=== PATIENT | female | born 1955 | race Caucasian/White ===

== ENCOUNTER → 2016-05-06 | Outpatient (CLI) | payer OTHER ==
[~2016-05-06] MED LIST: FLUO-1 PO; HYDR10FO PR; METO5TAB PO; PERC10TA27 PO; PROZ20CA11 PO; TRAZ100 PO; TRAZ100T4 PO; TRIL150T PO
[2016-05-06 09:17] LABS: AUTOMATED NEUTROPHIL # 6.9 TH/MM3 (1.8-7.7); BASOPHIL % 0.5 % (0.0-2.0); EOSINOPHIL # 0.2 TH/MM3 (0-0.4); EOSINOPHIL % 2.5 % (0.0-4.0); HEMATOCRIT 42.8 % (35.0-46.0); HEMO FLAGS DIFF FINAL; LYMPH % 18.2 % (9.0-44.0); LYMPHOCYTE # 1.7 TH/MM3 (1.0-4.8); MEAN CELL VOLUME 95.3 FL (80.0-100.0); MEAN CORPUSCULAR HEMOGLOBIN 31.6 PG (27.0-34.0); MEAN CORPUSCULAR HGB CONC 33.1 % (32.0-36.0); MONO % 6.1 % (0.0-8.0); NEUT % 72.7 % (16.0-70.0); PLATELET COUNT 258 TH/MM3 (150-450); RED BLOOD COUNT 4.49 MIL/MM3 (4.00-5.30); RED CELL DISTRIBUTION WIDTH 13.5 % (11.6-17.2); WHITE BLOOD COUNT 9.6 TH/MM3 (4.0-11.0)
--- NOTE | 2016-05-06 09:17 | RADRPT ---
EXAM DATE/TIME: 05/06/2016 08:51 [facility] COMPARISON: No previous studies available for comparison. INDICATIONS : Cough for 3 weeks. MEDICAL HISTORY : None. SURGICAL HISTORY : None. ENCOUNTER: Initial ACUITY: 3 weeks PAIN SCORE: 0/10 LOCATION: Bilateral upper chest FINDINGS: PA and lateral views of the chest demonstrate the lungs to be symmetrically aerated without evidence of mass, infiltrate or effusion. The cardiomediastinal contours are unremarkable. Osseous structure s are intact. CONCLUSION: 1. No active disease. Mild pectus deformity. Logan Lee MD on May 06, 2016 at 9:13 Board Certified Radiologist. This report was verified electronically.
[2016-05-06 09:21] LABS: BLOOD, URINE NEG (NEG); GLUCOSE,URINE NEG (NEG); HYALINE CAST, URINE 1 /lpf (RARE); KETONE, URINE TRACE mg/dL (NEG); MUCUS URINE MANY /lpf (OCC); NITRITE,URINE NEG (NEG); PH, URINE 5.5 (5.0-8.5); SQUAMOUS EPITHELIAL CELL URINE <1 /hpf (0-5); URINE COLOR YELLOW (YELLW/STRAW)
[2016-05-06 09:29] LABS: COMMENT (UR) CULT NOT INDICATED; CULTURE IF INDICATED CULT NOT INDICATED
[2016-05-06 09:38] LABS: ALKALINE PHOSPHATASE 78 U/L (45-117); ALT (GPT) 14 U/L (10-53); ANION GAP 10 MEQ/L (5-15); AST (GOT) 9 U/L (15-37); BICARBONATE 28.2 MEQ/L (21.0-32.0); BLOOD UREA NITROGEN 13 MG/DL (7-18); CHLORIDE 102 MEQ/L (98-107); GLOMERULAR FILTRATION RATE 69 ML/MIN (>89); GLUCOSE,FASTING 85 MG/DL (74-99); POTASSIUM 4.2 MEQ/L (3.5-5.1); SODIUM (NA) 140 MEQ/L (136-145); TOTAL BILIRUBIN ADULT 0.4 MG/DL (0.2-1.0)
--- NOTE | 2016-05-06 15:44 | EKG ---
Date Performed: 05/06/2016 Time Performed: 08:23:49 PTAGE: 60 years EKG: SINUS BRADYCARDIA BORDERLINE ECG INTERPRETATION BASED ON A DEFAULT AGE OF 40 YEARS NO PREVIOUS TRACING DOCTOR: Urszula Santana Interpretating Date/Time 05/06/2016 15:40:55
== END ==
LOC: CPRE 07:53
PROVIDERS: ATTEND Colon & Rectal Surgery
DX: Z01.810 Encounter for preprocedural cardiovascular examination (principal); Z01.811 Encounter for preprocedural respiratory examination; Z01.812 Encounter for preprocedural laboratory examination; K64.3 Fourth degree hemorrhoids; Z12.11 Encounter for screening for malignant neoplasm of colon; R94.31 Abnormal electrocardiogram [ECG] [EKG]
CPT/HCPCS: 36415; 71020; 80053; 81001; 85025; 93005

== ENCOUNTER 2016-05-13 08:28 | Observation (INO) | payer OTHER ==
[~2016-05-13] VITALS: Ht 154.9 cm; Wt 52.8 kg
[~2016-05-13 08:28] MED LIST changes: -FLUO-1 PO; -HYDR10FO PR; -METO5TAB PO; -PERC10TA27 PO; -TRAZ100 PO
--- NOTE | 2016-05-13 08:59 | PD.HP.UP ---
H&P Update Note The Pre-Admit History and Physical Examination regarding the above named patient was reviewed (including, but not limited to, vital signs, heart, lungs, co-morbid conditions), and upon re-examination it is noted that: the patient's condition has not significantly changed since the last examination. Gabe De La Torre MD May 13, 2016 08:58
[2016-05-13 09:11] VITALS: BP 108/67; PULSE 71; RESP 20; TEMP 97.9; O2SAT 94
[2016-05-13] MEDS ORDERED: INSULIN HUMAN REGULAR 1,000 UNITS/10 ML VIAL SQ PRN (09:15)
[2016-05-13] MEDS ORDERED: SODIUM CHLORID 0.9% 500 ML IV SCH (09:15)
[2016-05-13] MEDS ORDERED: LACTATED RINGER'S 1000 ML IV SCH (09:15)
[2016-05-13] MEDS ORDERED: METOPROLOL TARTRATE 25 MG TAB PO PRN (09:15)
[2016-05-13] MEDS ORDERED: LIDOCAINE 1%/EPINEPHrine 1:100,000 SOLN 30 ML VIAL ONE (10:54)
[2016-05-13] MEDS ORDERED: BUPIVACAINE/EPINEPHRINE 0.5% PF 30 ML VIAL ONE (10:55)
[2016-05-13] MEDS ORDERED: METOCLOPRAMIDE HCL 10 MG/2 ML VIAL ONE (10:59)
[2016-05-13] MEDS ORDERED: FAMOTIDINE 20 MG/2 ML VIAL ONE (10:59)
[2016-05-13] MEDS ORDERED: SILVER SULFADIAZINE/LIDOCAINE CREAM 60 GM JAR EXT ONE (11:45)
[2016-05-13] MEDS ORDERED: NEOSTIGMINE METHYLSULFATE 10 MG/10 ML VIAL IV PUSH ONE (12:00)
[2016-05-13] MEDS ORDERED: ONDANSETRON HCL 4 MG/2 ML VIAL IV PUSH ONE (12:00)
[2016-05-13] MEDS ORDERED: PROPOFOL 200 MG/20 ML AMP IV ONE (12:00)
[2016-05-13] MEDS ORDERED: PHENYLEPH/NS 1000 MCG/10 ML SYR IV ONE (12:00)
[2016-05-13] MEDS ORDERED: MORPHINE SULFATE 4 MG/ML INJ ONE (12:40)
[2016-05-13] MEDS ORDERED: MIDAZOLAM HCL 2 MG/2 ML VIAL ONE (12:40)
[2016-05-13] MEDS ORDERED: *morphine SULFATE 8 MG/ML PERIprocedure ONLY ONE ×2 (12:56→13:10)
[2016-05-13] MEDS ORDERED: KETOROLAC TROMETHAMINE 30 MG/ML (IVP) VIAL ONE (13:26)
[2016-05-13] MEDS ORDERED: MORPHINE SULFATE 4 MG/ML INJ IV PRN (13:30)
[2016-05-13] MEDS ORDERED: *hydrOXYzine 25 MG VIAL PERIprocedural Use ONLY IM ONE (13:45)
[2016-05-13] MEDS ORDERED: ONDANSETRON HCL 4 MG/2 ML VIAL IV PUSH PRN (14:00)
[2016-05-13] MEDS ORDERED: KETOROLAC TROMETHAMINE 30 MG/ML (IVP) VIAL IV PUSH ONE (15:00)
[2016-05-13] MEDS ORDERED: LACTATED RINGER'S 1000 ML INJ 1,000 ML IV ONE (17:15)
[2016-05-13 20:00] VITALS: BP 93/55; PULSE 86; RESP 17; TEMP 97.6; O2SAT 94
[2016-05-13] MEDS ORDERED: SODIUM CHLOR 0.9% 1000 ML INJ 1,000 ML IV SCH (22:30)
[2016-05-14] VITALS: BP 93/59; PULSE 81; RESP 17; TEMP 96.8; O2SAT 96
[2016-05-14] MEDS ORDERED: traZODone HCL 100 MG TAB PO ONE (00:30)
[2016-05-14 01:00] VITALS: BP 122/60; PULSE 74; O2SAT 95
[2016-05-14] MEDS: oxyCODONE/ACETAMINOPHEN 10 MG/325 MG TAB PO PRN ×3 (01:01→09:01)
[2016-05-14 04:00] VITALS: BP 95/54; PULSE 57; RESP 17; TEMP 96.8; O2SAT 96
[2016-05-14 05:10] LABS: AUTOMATED NEUTROPHIL # 9.5 TH/MM3 (1.8-7.7); BASOPHIL % 0.2 % (0.0-2.0); EOSINOPHIL # 0.1 TH/MM3 (0-0.4); EOSINOPHIL % 0.5 % (0.0-4.0); HEMATOCRIT 32.7 % (35.0-46.0); HEMO FLAGS DIFF FINAL; LYMPH % 18.7 % (9.0-44.0); LYMPHOCYTE # 2.4 TH/MM3 (1.0-4.8); MEAN CELL VOLUME 96.2 FL (80.0-100.0); MEAN CORPUSCULAR HEMOGLOBIN 32.1 PG (27.0-34.0); MEAN CORPUSCULAR HGB CONC 33.4 % (32.0-36.0); MONO % 8.2 % (0.0-8.0); NEUT % 72.4 % (16.0-70.0); PLATELET COUNT 192 TH/MM3 (150-450); RED CELL DISTRIBUTION WIDTH 13.3 % (11.6-17.2); WHITE BLOOD COUNT 13.1 TH/MM3 (4.0-11.0)
[2016-05-14 08:00] VITALS: BP 84/48; PULSE 78; RESP 17; TEMP 97; O2SAT 94
[2016-05-14] MEDS ORDERED: PERC10TA27 PO (09:05)
[2016-05-14 12:06] VITALS: O2SAT 94
[2016-05-14] MEDS ORDERED: traZODone HCL 100 MG TAB PO SCH (21:00)
--- NOTE | 2016-05-26 07:30 | MP ---
cc: ANTWON GARCIA M.D. DATE OF SURGERY: 05/13/2016 PREOPERATIVE DIAGNOSIS Symptomatic grade IV hemorrhoids. PROCEDURE 1. Colonoscopy to cecum. 2. Exam under anesthesia with anorectoplasty. POSTOPERATIVE DIAGNOSIS 1. Normal cecum and ileocecal valve. 2. Diverticulosis rectosigmoid and left colon. 3. Grade III/IV internal and external hemorrhoids. SURGEON Dr. Garcia DETAILS OF PROCEDURE The patient was placed in the supine position. After adequate general anesthesia she was turned in the left lateral position. Rectal exam confirmed the emptiness of the rectal vault. The Olympus colonoscope was then introduced into the rectum and advanced easily under direct vision through the proximal colon until the cecum was identified. The ileocecal valve was normal. There were no vascular abnormalities noted in the cecum. The colonoscope was then gradually withdrawn visualizing the mucosal surface throughout the distal colon. Except for some diverticulosis in the rectosigmoid there were no other mucosal polyps or other sites of inflammation. Next, the patient was repositioned to the prone jackknife position and supported appropriately. The buttocks were taped apart, prepped with Betadine solution and draped in the usual sterile fashion. Initially local anesthesia was obtained by injection of 1% Xylocaine/0.5% Marcaine with epinephrine. The anal canal was gently dilated and a half-casey retractor inserted. Examination revealed rather large hemorrhoids in the left lateral and right posterior positions. The right anterior cushion was a little bit smaller although a moderate external hemorrhoid was present. First an elliptical incision was made over the large hemorrhoidal mass in the left lateral quadrant excising it off the internal and external sphincter. The pedicle was then narrowed and divided using electrocautery. The mucosal defect was then closed using a running chromic catgut suture for the mucosa and the anoderm. Several [id number] sutures of chromic catgut were also placed for hemostasis. Similar dissection was then performed in the right posterior position and smaller excision in the right anterior position, closing the posterior defect but leaving the anterior defect opened with good hemostasis. The lumen size was more than adequate after the procedure. Small Surgicel dressing was placed in the anal canal and a large Fluff dressing placed externally. The patient tolerated the procedure quite well and was brought to the recovery room in stable condition. Sponge and needle counts were correct at the end of the procedure. MD YOSELYN Celis /11:06 PM /7:19 AM MTDTrang
== END 2016-05-14 12:10 | disposition home or self-care (01) ==
LOC: HSDC 08:28 → N07B 12:30
PROVIDERS: ADMIT Colon & Rectal Surgery; ATTEND Colon & Rectal Surgery
DX: Z12.11 Encounter for screening for malignant neoplasm of colon (principal); K64.3 Fourth degree hemorrhoids; K64.4 Residual hemorrhoidal skin tags; K57.90 Diverticulosis of intestine, part unspecified, without perforation or abscess without bleeding
CPT/HCPCS: 00902; 45378; 46260; 85025; 88304; G0378; J1885; J2250; J2270; J2370; J2405; J2710; J2765; J3010; J3410; J7030; J7120

== ENCOUNTER 2016-05-21 09:22 | Inpatient (IN) | payer OTHER ==
[~2016-05-21] VITALS: Ht 157.5 cm; Wt 50.0 kg
[~2016-05-21 09:22] MED LIST changes: +PERC10TA27 PO
[2016-05-21 09:44] VITALS: BP 139/98; PULSE 75; RESP 20; TEMP 97.5; O2SAT 99
--- NOTE | 2016-05-21 09:49 | PD ---
HPI Chief Complaint: GI Complaint Time Seen by Provider: 09:45 Travel History International Travel<30 days: No Contact w/Intl Traveler<30days: No Traveled to known affect area: No History of Present Illness HPI 60-year-old female came to the emergency room with history of vomiting and abdominal pain. She said it started last night and she has vomited multiple times since then. She points her pain to the epigastric area. Patient finally called EMS who brought her in. She did have a bowel movement once or twice but no overt diarrhea. Patient had hemorrhoidectomy one week ago. No history of bleeding patient said. No history of fever or chills. She looks in significant distress and anxious. Patient says that they gave her something for nausea in the ambulance but that has not made her feel better. Vital signs are otherwise within acceptable limits. Normal tone sick contacts. Patient was taking Percocet up until 2 days ago for her pain. PFSH Past Medical History Narrative Medical List of her past medical history as reviewed from the nursing note. Bipolar Disorder: Yes Cancer: No Cardiovascular Problems: No Diabetes: No Endocrine: No Gastrointestinal Disorders: Yes (HEMORRHOIDS) Hepatitis: No Hiatal Hernia: No Immune Disorder: No Musculoskeletal: No Neurologic: No Psychiatric: No Reproductive: No Respiratory: No Thyroid Disease: No Tetanus Vaccination: < 5 Years ?: Not Menopausal: Yes Past Surgical History AICD: No Body Medical Devices: BREAST AUGMENTATION Joint Replacement: No Pacemaker: No Other Surgery: Yes (HEMMOHOIDECTOMY ON WED ) Social History Alcohol Use: No Tobacco Use: Yes Substance Use: No Allergies-Medications (Allergen,Severity, Reaction): Coded Allergies: No Known Allergies (Unverified , 05/06/16) Comments No known drug allergies. Reported Meds & Prescriptions Reported Meds & Active Scripts Active Reported Trileptal (Oxcarbazepine) 150 Mg Tab 450 Mg PO DAILY Trazodone (Trazodone HCl) 100 Mg Tab 200 Mg PO HS Prozac (Fluoxetine HCl) 20 Mg Cap 60 Mg PO DAILY Narrative Medication List of her home medications reviewed from the nursing note. Review of Systems Except as stated in HPI: all other systems reviewed are Neg Physical Exam Narrative GENERAL: Awake, alert, anxious, moderate to significant distress SKIN: Warm and dry. Pale HEAD: Atraumatic. Normocephalic. EYES: Pupils equal and round. No scleral icterus. No injection or drainage. ENT: No nasal bleeding or discharge. Mucous membranes pink and moist. Dry mucous membrane NECK: Trachea midline. No JVD. CARDIOVASCULAR: Regular rate and rhythm. No murmur appreciated. RESPIRATORY: No accessory muscle use. Clear to auscultation. Breath sounds equal bilaterally. GASTROINTESTINAL: Tender over her epigastric region. Hepatic and splenic margins not palpable. MUSCULOSKELETAL: No obvious deformities. No clubbing. No cyanosis. No edema. NEUROLOGICAL: Awake and alert. No obvious cranial nerve deficits. Motor grossly within normal limits. Normal speech. PSYCHIATRIC: Appropriate mood and affect; insight and judgment normal. Data Data Last Documented VS Vital Signs Date Time Temp Pulse Resp B/P Pulse Ox O2 Delivery O2 Flow Rate FiO2 05/21/16 10:25 99 05/21/16 09:44 97.5 75 20 139/98 Orders Complete Blood Count With Diff (05/21/16 09:52) Comprehensive Metabolic Panel (05/21/16 09:52) Lipase (05/21/16 09:52) Act Partial Throm Time (Ptt) (05/21/16 09:52) Ct Abd/Pel W/O Iv Contrast (05/21/16 09:52) Iv Access Insert/Monitor (05/21/16 09:52) Ecg Monitoring (05/21/16 09:52) Oximetry (05/21/16 09:52) Morphine Inj (Morphine Inj) (05/21/16 10:00) Ondansetron Inj (Zofran Inj) (05/21/16 10:00) Pantoprazole Inj (Protonix Inj) (05/21/16 10:00) Sodium Chlor 0.9% 1000 Ml Inj (Ns 1000 M (05/21/16 09:52) Sodium Chloride 0.9% Flush (Ns Flush) (05/21/16 10:00) Electrocardiogram (05/21/16 ) Admit Order (Ed Use Only) (05/21/16 11:41) Place In Observation (05/21/16 ) Vital Signs (Adult) Q4H (05/21/16 11:42) Activity Bed Rest With Brp (05/21/16 11:42) Diet Clear Liquid (05/21/16 Lunch) Sodium Chlor 0.9% 1000 Ml Inj (Ns 1000 M (05/21/16 12:00) Sodium Chloride 0.9% Flush (Ns Flush) (05/21/16 11:45) Sodium Chloride 0.9% Flush (Ns Flush) (05/21/16 21:00) Acetaminophen (Tylenol) (05/21/16 11:45) Ondansetron Inj (Zofran Inj) (05/21/16 11:45) Basic Metabolic Panel (Bmp) (05/22/16 06:00) Complete Blood Count With Diff (05/22/16 06:00) Scd Bilateral/Knee High ARIAN.BID (05/21/16 11:42) Naloxone Inj (Narcan Inj) (05/21/16 11:45) Labs Laboratory Tests Test 05/21/16 10:00 White Blood Count 13.0 TH/MM3 Red Blood Count 4.24 MIL/MM3 Hemoglobin 13.6 GM/DL Hematocrit 39.9 % Mean Corpuscular Volume 94.1 FL Mean Corpuscular Hemoglobin 32.0 PG Mean Corpuscular Hemoglobin 34.0 % Concent Red Cell Distribution Width 13.4 % Platelet Count 363 TH/MM3 Mean Platelet Volume 8.7 FL Neutrophils (%) (Auto) 89.1 % Lymphocytes (%) (Auto) 5.7 % Monocytes (%) (Auto) 4.8 % Eosinophils (%) (Auto) 0.1 % Basophils (%) (Auto) 0.3 % Neutrophils # (Auto) 11.6 TH/MM3 Lymphocytes # (Auto) 0.7 TH/MM3 Monocytes # (Auto) 0.6 TH/MM3 Eosinophils # (Auto) 0.0 TH/MM3 Basophils # (Auto) 0.0 TH/MM3 CBC Comment DIFF FINAL Differential Comment Activated Partial 24.5 SEC Thromboplast Time Sodium Level 137 MEQ/L Potassium Level 3.5 MEQ/L Chloride Level 103 MEQ/L Carbon Dioxide Level 22.9 MEQ/L Anion Gap 11 MEQ/L Blood Urea Nitrogen 8 MG/DL Creatinine 0.68 MG/DL Estimat Glomerular Filtration 88 ML/MIN Rate Random Glucose 143 MG/DL Calcium Level 8.7 MG/DL Total Bilirubin 0.4 MG/DL Aspartate Amino Transf 15 U/L (AST/SGOT) Alanine Aminotransferase 17 U/L (ALT/SGPT) Alkaline Phosphatase 75 U/L Total Protein 7.4 GM/DL Albumin 3.6 GM/DL Lipase 218 U/L MDM Medical Decision Making Medical Screen Exam Complete: Yes Emergency Medical Condition: Yes Medical Record Reviewed: Yes Differential Diagnosis Small bowel obstruction, acute pancreatitis, acute cholecystitis Narrative Course 10:06 AM awaiting for the blood test results and the CAT scan to be done and resulted. I'm giving her IV fluid, medicating her for pain and nausea. I will reassess her in a bit. 11:18 AM test results of back and within acceptable limits. CT scan does not show any abnormalities that would explain the vomiting episode. In my opinion should probably developed gastritis from the medications after the surgery she was taking for pain. I reassessed her and she says she still dry heaving and does not feel good. I will admit her for observation for intractable vomiting and nausea at this point. Awaiting for the hospitalist to call back. Procedures EKG Prior to Arrival: No Diagnosis Primary Impression: Acute gastritis Qualified Code: K29.00 - Acute gastritis without hemorrhage, unspecified gastritis type Additional Impressions: Intractable nausea and vomiting Qualified Code: R11.2 - Intractable vomiting with nausea, unspecified vomiting type Status post hemorrhoidectomy Admitting Information Admitting Physician Requests: Observation Scripts Metoclopramide 5 Mg Tab5 Mg PO TIDAC PRN (30) #30 TAB Ref 0 Prov:Sisi Cruz 05/23/16 Abida Simmons MD May 21, 2016 09:49
[2016-05-21] MEDS ORDERED: SODIUM CHLOR 0.9% 1000 ML INJ 1,000 ML IV SCH (09:52)
[2016-05-21] MEDS ORDERED: SODIUM CHLORIDE 0.9% FLUSH 5 ML FLUSH IVF PRN (10:00)
[2016-05-21] MEDS ORDERED: PANTOPRAZOLE SODIUM 40 MG VIAL IVP ONE (10:00)
[2016-05-21] MEDS ORDERED: ONDANSETRON HCL 4 MG/2 ML VIAL IVP ONE (10:00)
[2016-05-21] MEDS ORDERED: MORPHINE SULFATE 4 MG/ML INJ IV PUSH ONE (10:00)
[2016-05-21 10:25] VITALS: O2SAT 99
[2016-05-21 10:36] LABS: AUTOMATED NEUTROPHIL # 11.6 TH/MM3 (1.8-7.7); BASOPHIL % 0.3 % (0.0-2.0); EOSINOPHIL % 0.1 % (0.0-4.0); HEMATOCRIT 39.9 % (35.0-46.0); HEMO FLAGS DIFF FINAL; LYMPH % 5.7 % (9.0-44.0); LYMPHOCYTE # 0.7 TH/MM3 (1.0-4.8); MEAN CELL VOLUME 94.1 FL (80.0-100.0); MONO % 4.8 % (0.0-8.0); NEUT % 89.1 % (16.0-70.0); PLATELET COUNT 363 TH/MM3 (150-450); RED BLOOD COUNT 4.24 MIL/MM3 (4.00-5.30); RED CELL DISTRIBUTION WIDTH 13.4 % (11.6-17.2)
[2016-05-21 10:44] LABS: APTT (PATIENT) 24.5 SEC (24.3-30.1)
[2016-05-21 10:58] LABS: ALT (GPT) 17 U/L (10-53); ANION GAP 11 MEQ/L (5-15); BICARBONATE 22.9 MEQ/L (21.0-32.0); BLOOD UREA NITROGEN 8 MG/DL (7-18); CHLORIDE 103 MEQ/L (98-107); GLOMERULAR FILTRATION RATE 88 ML/MIN (>89); POTASSIUM 3.5 MEQ/L (3.5-5.1); SODIUM (NA) 137 MEQ/L (136-145)
--- NOTE | 2016-05-21 11:00 | RADRPT ---
EXAM DATE/TIME: 05/21/2016 10:19 [facility] COMPARISON: No previous studies available for comparison. INDICATIONS : Lower abdominal pain with vomiting since last night. Hemorrhiodectomy yesterday. ORAL CONTRAST: No oral contrast ingested. RADIATION DOSE: 9.96 CTDIvol (mGy) MEDICAL HISTORY : None SURGICAL HISTORY : Hemorrhoidectomy. ENCOUNTER: Initial ACUITY: 1 day PAIN SCALE: 3/10 LOCATION: lower quadrant abdomen TECHNIQUE: Volumetric scanning of the abdomen and pelvis was performed. Using automated exposure control and ad justment of the mA and/or kV according to patient size, radiation dose was kept as low as reasonably achievable to obtain optimal diagnostic quality images. FINDINGS: LOWER LUNGS: Linear atelectasis versus scarring within the right base. LIVER: Homogeneous density without lesion. There is no dilation of the biliary tree. No calcified gallston es. SPLEEN: Normal size without lesion. PANCREAS: Within normal limits. KIDNEYS: Normal in size and shape. There is no mass or hydronephrosis. 2 tiny nonobstructing stones involve t he left kidney. Each measures approximately 1 mm. ADRENAL GLANDS: 1.9 cm low-density nodule involving the left adrenal gland. Hounsfield units are 9. The right adrenal gland is unremarkable. VASCULAR: There is no aortic aneurysm. BOWEL/MESENTERY: The stomach, small bowel, and colon demonstrate no acute abnormality. There is no free intraperitone al air or fluid. ABDOMINAL WALL: Within normal limits. RETROPERITONEUM: There is no lymphadenopathy. BLADDER: No wall thickening or mass. REPRODUCTIVE: Within normal limits. INGUINAL: There is no lymphadenopathy or hernia. MUSCULOSKELETAL: Within normal limits for patient age. CONCLUSION: 1. No acute abnormality. 2. 2 tiny nonobstructing left renal stones. 3. 1.9 cm left adrenal gland nodule poorly characterized on this unenhanced study. Maxx Mayers Jr., MD on May 21, 2016 at 10:51 Board Certified Radiologist. This report was verified electronically.
[2016-05-21 11:01] LABS: ALKALINE PHOSPHATASE 75 U/L (45-117); AST (GOT) 15 U/L (15-37); TOTAL BILIRUBIN ADULT 0.4 MG/DL (0.2-1.0)
[2016-05-21] MEDS ORDERED: MORPHINE SULFATE 4 MG/ML INJ IV PUSH PRN (11:45)
[2016-05-21] MEDS ORDERED: NALOXONE HCL 0.4 MG/ML AMP IV PRN (11:45)
[2016-05-21] MEDS ORDERED: SODIUM CHLORIDE 0.9% FLUSH 5 ML FLUSH FLUSH PRN (11:45)
[2016-05-21] MEDS ORDERED: METOCLOPRAMIDE HCL 10 MG/2 ML VIAL IV PUSH ONE (12:15)
[2016-05-21 12:28] VITALS: BP 173/81; PULSE 78; RESP 14; O2SAT 98
[2016-05-21] MEDS: SODIUM CHLOR 0.9% 1000 ML INJ 1,000 ML IV SCH ×2 (12:28→20:47)
[2016-05-21] MEDS ORDERED: PANTOPRAZOLE SODIUM 40 MG VIAL IV PUSH SCH (14:00)
--- NOTE | 2016-05-21 15:20 | MH ---
cc: TOMMYMARÍA DATE OF ADMISSION: 05/21/2016 DATE OF 1955 CHIEF COMPLAINT Irretractable nausea and vomiting. TRAVEL LESS THAN 30 DAYS: No HISTORY OF PRESENT ILLNESS This is a pleasant 60-year-old white female who was in the hospital approximately a week ago for hemorrhoidectomy. The patient had no acute issues postop and was sent home to recuperate. The patient was also sent home with pain medicine, Percocet. The prescription said two tablets every 4 hours as needed for pain and the patient was taking them as prescribed. She states sometimes she would wait a little longer but for the most part she was taking two Percocet at a time. The patient has had nausea pretty much constant since she got home but approximately 2 days ago she was not able to eat or keep anything on her stomach. She has had irretractable vomiting, she states approximately a hundred times. She states that she vomited approximately 1 hour ago which was liquid bowel consistency. She is not bringing up very much but she is dry heaving to the point that she is sore in her chest and abdomen. The patient states that she does have a history of reflux and gastroesophageal reflux disease but denies any chest pain and no shortness of breath. The patient denies any fever or chills over the past week. She did have a bowel movement this morning which was a soft consistency. She denies any bleeding. No headache and no history of any nausea and vomiting or abdominal pain like she has had this go around. The patient did note a 10 pound weight gain after leaving the hospital but states that she has urinated significant amounts and has lost that weight back down to her normal weight. PAST MEDICAL HISTORY 1. Gastroesophageal reflux disease. 2. Bipolar disorder. 3. Hemorrhoids. PAST SURGICAL HISTORY 1. Breast augmentation. 2. Hemorrhoidectomy approximately 1 week ago. ALLERGIES None known. MEDICATIONS Active medications: 1. Trazodone 200 mg p.o. at bedtime. 2. Prozac 20 mg daily. 3. Trileptal 450 mg p.o. daily. 4. Currently Percocet for pain management postop only. SOCIAL HISTORY The patient is but currently lives with her boyfriend in a home. Denies any alcohol use. She was a chronic tobacco user but states she quit approximately 2 years ago. No illicit drug use. FAMILY HISTORY Cancer, although her mother is still living and here at the hospital. She does have other family members at her bedside. REVIEW OF SYSTEMS A 12-point review was done. Positives noted are generalized weakness, nausea, vomiting. Other systems negative or unremarkable. PHYSICAL EXAMINATION VITAL SIGNS: Temperature is 97.5, pulse 75, respirations 20 and blood pressure is 139/98 and 173/81, O2 sat 98 on room air. GENERAL: Slim, well-nourished white female, looks to be her stated age, resting in the bed, mild anxiety noted, talkative. SKIN: Skin is warm and dry, slightly pale. HEENT: Atraumatic, normocephalic. PERRLA at 2. No scleral icterus. No drainage. No nasal drainage. Mucous membranes are slightly pale but moist. NECK: Neck is supple. No JVD. CARDIOVASCULAR: Regular rate and rhythm. No murmurs, rubs or gallops appreciated. RESPIRATORY: Essentially clear anteriorly and posteriorly. No accessory muscle use. No wheezes, rales or rhonchi. GI: Abdomen is flat, soft, nontender, nondistended. Active bowel sounds in all four quads. MUSCULOSKELETAL: She moves all extremities with purpose, no edema. No clubbing, no cyanosis. Pulses are intact. NEUROLOGIC: She is alert, awake, answers questions appropriately, a good historian. Speech is clear. Hand herpetology teacher are equal. PSYCHIATRIC: Appropriate mood and affect, mild anxiety. DIAGNOSTIC DATA WBC count 13, RBC 4.24, hemoglobin 13.6, hematocrit 39.9, platelet count 363, neutrophil absolute 89.1, lymphocyte 5.7. APTT 24.5. Chemistry sodium 137, potassium 3.5, chloride 103, carbon dioxide 22.9, amnion gap 11, BUN 8, creatinine 0.68, GFR 88, random glucose 143, calcium 8.7, lipase 218. All other chemistries are normal. IMAGING STUDIES Abdomen, pelvis CT showed no acute abnormality, tiny nonobstructing left renal stone, 1.9 cm left adrenal gland nodule poorly characterized in his unenhanced study. ASSESSMENT/PLAN Acute gastritis without hemorrhage, irretractable nausea and vomiting, possibly secondary to pain meds. The patient is status post hemorrhoidectomy x1 week. Small nonobstructing left renal stone seen on exam. Bipolar disorder. Our plan is to admit for observation. We will monitor her vital signs q. 4, ECG monitoring. We will draw labs in the morning and as warranted. Give her gentle hydration with IV fluids. I started her on IV Protonix. Her medications have been reconciled. She can have clear liquids and will treat her nausea with IV meds as warranted. Family is in the room, questions have been answered. The patient needs hydration and we will continue to evaluate any further symptoms or needs. This non-obstructing renal stone has been visualized on exam; doubt that this is any particular cause to her nausea and vomiting. Currently we are not going to use any p.o. pain meds or Percocet. She will be on IV morphine as warranted. The patient is full code, full aggressive care per her request and we will follow. Dictated by: ROMIE Romero María Myrick MD JP/SEBASTIAN /1:54 PM /3:19 PM Pt was seen and examined in ER as above on day of admission face to face time spent with pt chart was reviewed in detail including meds labs and notes and rad data plan of care was jayne godoy pt jayne corn chip maker jayne ER physician SIMI
[2016-05-21 16:56] VITALS: BP 114/59; PULSE 65; RESP 18; O2SAT 95
[2016-05-21 19:27] VITALS: BP 101/57; PULSE 60; RESP 16; O2SAT 98
[2016-05-21 20:31] VITALS: BP 125/69; PULSE 59; RESP 19; TEMP 98.8; O2SAT 93
[2016-05-21] MEDS: traZODone HCL 100 MG TAB PO SCH (20:46)
[2016-05-21] MEDS: SODIUM CHLORIDE 0.9% FLUSH 5 ML FLUSH FLUSH SCH (20:47)
[2016-05-21] MEDS: ACETAMINOPHEN 325 MG TAB PO PRN (20:56)
[2016-05-22 00:47] VITALS: BP_SYST 58; PULSE 51; RESP 18; TEMP 98; O2SAT 96
[2016-05-22] MEDS: ACETAMINOPHEN 325 MG TAB PO PRN ×2 (03:27→22:20)
[2016-05-22] MEDS: ONDANSETRON HCL 4 MG/2 ML VIAL IVP PRN ×2 (03:37→10:01)
[2016-05-22 07:10] LABS: AUTOMATED NEUTROPHIL # 9.6 TH/MM3 (1.8-7.7); BASOPHIL % 0.4 % (0.0-2.0); EOSINOPHIL % 0.1 % (0.0-4.0); HEMATOCRIT 38.8 % (35.0-46.0); HEMO FLAGS DIFF FINAL; LYMPH % 10.5 % (9.0-44.0); LYMPHOCYTE # 1.2 TH/MM3 (1.0-4.8); MEAN CELL VOLUME 95.2 FL (80.0-100.0); MEAN CORPUSCULAR HEMOGLOBIN 31.6 PG (27.0-34.0); MEAN CORPUSCULAR HGB CONC 33.2 % (32.0-36.0); MONO % 5.9 % (0.0-8.0); NEUT % 83.1 % (16.0-70.0); PLATELET COUNT 341 TH/MM3 (150-450); RED BLOOD COUNT 4.07 MIL/MM3 (4.00-5.30); RED CELL DISTRIBUTION WIDTH 13.9 % (11.6-17.2); WHITE BLOOD COUNT 11.5 TH/MM3 (4.0-11.0)
[2016-05-22 07:12] VITALS: BP 159/81; PULSE 63; RESP 17; TEMP 97.9; O2SAT 94
[2016-05-22] MEDS ORDERED: LORazepam 2 MG/ML VIAL IV PUSH ONE (07:15)
[2016-05-22 07:32] LABS: BICARBONATE 20.9 MEQ/L (21.0-32.0); POTASSIUM 3.4 MEQ/L (3.5-5.1)
[2016-05-22] MEDS ORDERED: POTASSIUM CHLOR 20 MEQ PREMIX 100 ML IV ONE (08:00)
--- NOTE | 2016-05-22 08:01 | HHI.PR ---
Subjective Subjective Remarks nausea and vomiting overnight, at least 10 x , clear emesis epigastric discomfort states she's lost weight 20 lbs in 6 months unintentional no fever no cp no sob Review of Systems Constitutional Constitutional Remarks 12 point ROS completed negative except as noted above Vitals/Results Intake & Output 05/21/16 05/21/16 05/22/16 15:00 23:00 07:00 Intake Total 240 ml Balance 240 ml Intake Oral 240 ml Vital Signs Vital Signs Date Time Temp Pulse Resp B/P Pulse Ox O2 Delivery O2 Flow Rate FiO2 05/22/16 07:12 97.9 63 17 159/81 94 05/22/16 00:47 98.0 51 18 58/ 96 05/21/16 20:31 98.8 59 19 125/69 93 05/21/16 19:27 60 16 101/57 98 Room Air 05/21/16 16:56 65 18 114/59 95 Room Air 05/21/16 12:28 78 14 173/81 98 05/21/16 10:25 99 05/21/16 09:44 97.5 75 20 139/98 99 CBC/BMP: 05/22/16 0624 05/22/16 0624 Lab Results Laboratory Tests Test 05/21/16 05/22/16 10:00 06:24 White Blood Count 13.0 TH/MM3 11.5 TH/MM3 Red Blood Count 4.24 MIL/MM3 4.07 MIL/MM3 Hemoglobin 13.6 GM/DL 12.9 GM/DL Hematocrit 39.9 % 38.8 % Mean Corpuscular Volume 94.1 FL 95.2 FL Mean Corpuscular Hemoglobin 32.0 PG 31.6 PG Mean Corpuscular Hemoglobin 34.0 % 33.2 % Concent Red Cell Distribution Width 13.4 % 13.9 % Platelet Count 363 TH/MM3 341 TH/MM3 Mean Platelet Volume 8.7 FL 8.0 FL Neutrophils (%) (Auto) 89.1 % 83.1 % Lymphocytes (%) (Auto) 5.7 % 10.5 % Monocytes (%) (Auto) 4.8 % 5.9 % Eosinophils (%) (Auto) 0.1 % 0.1 % Basophils (%) (Auto) 0.3 % 0.4 % Neutrophils # (Auto) 11.6 TH/MM3 9.6 TH/MM3 Lymphocytes # (Auto) 0.7 TH/MM3 1.2 TH/MM3 Monocytes # (Auto) 0.6 TH/MM3 0.7 TH/MM3 Eosinophils # (Auto) 0.0 TH/MM3 0.0 TH/MM3 Basophils # (Auto) 0.0 TH/MM3 0.0 TH/MM3 CBC Comment DIFF FINAL DIFF FINAL Differential Comment Activated Partial 24.5 SEC Thromboplast Time Sodium Level 137 MEQ/L 139 MEQ/L Potassium Level 3.5 MEQ/L 3.4 MEQ/L Chloride Level 103 MEQ/L 107 MEQ/L Carbon Dioxide Level 22.9 MEQ/L 20.9 MEQ/L Anion Gap 11 MEQ/L 11 MEQ/L Blood Urea Nitrogen 8 MG/DL 8 MG/DL Creatinine 0.68 MG/DL 0.61 MG/DL Estimat Glomerular Filtration 88 ML/MIN 100 ML/MIN Rate Random Glucose 143 MG/DL 103 MG/DL Calcium Level 8.7 MG/DL 8.4 MG/DL Total Bilirubin 0.4 MG/DL Aspartate Amino Transf 15 U/L (AST/SGOT) Alanine Aminotransferase 17 U/L (ALT/SGPT) Alkaline Phosphatase 75 U/L Total Protein 7.4 GM/DL Albumin 3.6 GM/DL Lipase 218 U/L Physical Exam General General Appearance: Well Developed, No Acute Distress, Comfortable Eyes Eye Exam: Pupils Equal, Pupils Reactive Ears & Nose Ears & Nose Exam: Nasal Mucosa [place] Throat Throat Exam: Oral Mucosa [place] & Moist Neck Neck Exam: Neck Supple, Trachea Midline Pulmonary Resp Exam: Clear Bilaterally Cardiology CV Exam: Regular, Normal Sinus Rhythm, Good Perfusion Gastrointestinal/Abdomen GI Exam: Soft, Bowel Sounds Present, Non-Distended GI Remarks epigastric tenderness Musculoskeletal MS Exam: Joints Intact Integumentary Skin Exam: Warm, Dry Extremeties Extremities Exam: No Edema, Pedal Pulses Palpable Neurologic Neuro Exam: Alert, Awake, Oriented, Speech Clear, Moving All Extremities, No Focal Deficits Psychiatric Psych Exam: Appropriate Responses VTE Prophylaxis VTE Prophylaxis Device: SCDs PUD Prophylasis PUD Prophylaxis: Protonix Assessment/Plan Problem List: (1) Acute gastritis (2) Intractable nausea and vomiting (3) Status post hemorrhoidectomy (4) Unintentional weight loss (5) GERD (gastroesophageal reflux disease) (6) Bipolar disorder Assessment/Plan continue IVF Antiemetics PRN Replace electrolytes IV PPI Endorses wt loss x 6 months unintentional continues with N/V, consult GI for evaluation, d/w Car GRUBBS Keep NPO except meds for now Continue some home meds Replace electrolytes Pain management Labs reviewed replace Alejandro D/W RN D/W Dr. Myrick D/W pt D/W Car GRUBBS This patient was seen by myself and Dr. Myrick, this note is written on his behalf. Problem Qualifiers (1) Acute gastritis: Qualified Code: K29.00 - Acute gastritis without hemorrhage, unspecified gastritis type (2) Intractable nausea and vomiting: Qualified Code: R11.2 - Intractable vomiting with nausea, unspecified vomiting type (3) GERD (gastroesophageal reflux disease): Qualified Code: K21.9 - Gastroesophageal reflux disease, esophagitis presence not specified (4) Bipolar disorder: Qualified Code: F31.9 - Bipolar affective disorder, remission status unspecified Sisi Cruz May 22, 2016 08:01
[2016-05-22] MEDS: FLUoxetine HCL 20 MG CAP PO SCH (08:55)
[2016-05-22] MEDS: OXcarbazepine 150 MG TAB PO SCH (08:55)
[2016-05-22] MEDS: PANTOPRAZOLE SODIUM 40 MG VIAL IV PUSH SCH (08:56)
[2016-05-22] MEDS: SODIUM CHLORIDE 0.9% FLUSH 5 ML FLUSH FLUSH SCH ×2 (08:57→21:00)
[2016-05-22] MEDS: SODIUM CHLOR 0.9% 1000 ML INJ 1,000 ML IV SCH ×2 (08:59→18:00)
--- NOTE | 2016-05-22 09:38 | PD.CONS ---
HPI History of Present Illness This is a 60 year old female who presents to the ED with complaints of acute onset of intractable nausea and vomiting that started around . Patient had recent hospitalization for hemorrhoidectomy and under went colonoscopy on (05/13/16 ) with Dr. De La Torre and that revealed hemorrhoids s/p hemorrhoidectomy anorectoplasty. She was discharged on Percocet for pain and has been taking as recommended, states has been feeling nauseous, but the vomiting didn't start till later in the week. the emesis is liquid, non bloody, not much coming up any more, she is mostly dry heaving at this point. She couldn't keep anything down associated with constant epigastric pain. Denies hematemesis, diarrhea or melena. She does have slight BRBPR. She denies previous history of this. She has intermittent GERD but not frequent and not taking any medications for it. She had EGD in the past, but it has been more than 10 years. She indorses wt loss of 20 ibs in 5-6 months. She denies alcohol intake. CT of abd/pelvis (2016)---> No acute abnormality. LFTs, lipase normal, hgb normal, slight leukocytosis WBC 11.5 (Liam Yoon) PFSH Past Medical History GERD Bipolar disorder Hemorrhoids Past Surgical History Breast argumentation Hemorrhoidectomy 1 week ago (Liam Yoon) Coded Allergies: No Known Allergies (Unverified , 05/06/16) Medications Current Medications Medications (Trade) Dose Ordered Sig/Ken Route Start Time Stop Time Status Last Admin (NS 1000 ml Inj) 1,000 ml @ 100 mls/hr Q10H IV 05/21/16 12:00 05/22/16 08:59 (NS Flush) 2 ml UNSCH PRN FLUSH 05/21/16 11:45 (NS Flush) 2 ml BID FLUSH 05/21/16 21:00 05/22/16 08:57 (Tylenol) 650 mg Q4H PRN PO 05/21/16 11:45 05/22/16 03:27 (Zofran Inj) 4 mg Q6H PRN IVP 05/21/16 11:45 05/22/16 03:37 (Narcan Inj) 0.4 mg UNSCH PRN IV 05/21/16 11:45 (PROzac) 60 mg DAILY PO 05/22/16 09:00 05/22/16 08:55 (Trileptal) 450 mg DAILY PO 05/22/16 09:00 05/22/16 08:55 (Desyrel) 200 mg HS PO 05/21/16 21:00 05/21/16 20:46 (Morphine Inj) 2 mg Q3H PRN IV PUSH 05/21/16 11:45 Pantoprazole Sodium 40 mg 40 mg Q24H IV PUSH 05/22/16 10:00 05/22/16 08:56 (KCl 20 Meq Premix Inj) 100 ml @ 50 mls/hr BOLUS ONCE IV 05/22/16 08:00 05/22/16 09:59 05/22/16 09:00 Family History No family history of colon or gastric cancer Social History No alcohol, smoking or illicit drug use (Liam Yoon) Review of Systems Constitutional: COMPLAINS OF: Fatigue, DENIES: Chills Endocrine: DENIES: Polyuria Eyes: DENIES: Double Vision Ears, nose, mouth, throat: DENIES: Hoarseness Respiratory: DENIES: Shortness of breath Cardiovascular: DENIES: Lower Extremity Edema Gastrointestinal: COMPLAINS OF: Abdominal pain, Bloody stools, Nausea, Vomiting , Anorexia, DENIES: Black stools, Constipation, Diarrhea, Difficulty Swallowing , Odynophagia, Swelling of Abdomen, Heartburn, Hematemesis Genitourinary: DENIES: Hematuria Musculoskeletal: DENIES: Neck pain Integumentary: DENIES: Jaundice Hematologic/lymphatic: DENIES: Bruising Immunologic/allergic: DENIES: Eczema Neurologic: DENIES: Abnormal gait Psychiatric: DENIES: Anxiety (Liam Yoon) GI Exam Vitals I&O Vital Signs Date Time Temp Pulse Resp B/P Pulse Ox O2 Delivery O2 Flow Rate FiO2 05/22/16 07:12 97.9 63 17 159/81 94 05/22/16 00:47 98.0 51 18 58/ 96 05/21/16 20:31 98.8 59 19 125/69 93 05/21/16 19:27 60 16 101/57 98 Room Air 05/21/16 16:56 65 18 114/59 95 Room Air 05/21/16 12:28 78 14 173/81 98 2/16/17 10:25 99 05/21/16 09:44 97.5 75 20 139/98 99 I/O 05/21/16 05/21/16 05/21/16 05/22/16 05/22/16 05/22/16 07:00 15:00 23:00 07:00 15:00 23:00 Intake Total 240 ml Balance 240 ml Intake Oral 240 ml Imaging Last Impressions Abdomen/Pelvis CT 05/21/16 0952 Signed Impressions: Service Date/Time: May 10:19 - CONCLUSION: 1. No acute abnormality. 2. 2 tiny nonobstructing left renal stones. 3. 1.9 cm left adrenal gland nodule poorly characterized on this unenhanced study. Maxx Mayers Jr., MD Laboratory Test 05/21/16 05/22/16 10:00 06:24 White Blood Count 13.0 TH/MM3 11.5 TH/MM3 Red Blood Count 4.24 MIL/MM3 4.07 MIL/MM3 Hemoglobin 13.6 GM/DL 12.9 GM/DL Hematocrit 39.9 % 38.8 % Mean Corpuscular Volume 94.1 FL 95.2 FL Mean Corpuscular Hemoglobin 32.0 PG 31.6 PG Mean Corpuscular Hemoglobin 34.0 % 33.2 % Concent Red Cell Distribution Width 13.4 % 13.9 % Platelet Count 363 TH/MM3 341 TH/MM3 Mean Platelet Volume 8.7 FL 8.0 FL Neutrophils (%) (Auto) 89.1 % 83.1 % Lymphocytes (%) (Auto) 5.7 % 10.5 % Monocytes (%) (Auto) 4.8 % 5.9 % Eosinophils (%) (Auto) 0.1 % 0.1 % Basophils (%) (Auto) 0.3 % 0.4 % Neutrophils # (Auto) 11.6 TH/MM3 9.6 TH/MM3 Lymphocytes # (Auto) 0.7 TH/MM3 1.2 TH/MM3 Monocytes # (Auto) 0.6 TH/MM3 0.7 TH/MM3 Eosinophils # (Auto) 0.0 TH/MM3 0.0 TH/MM3 Basophils # (Auto) 0.0 TH/MM3 0.0 TH/MM3 CBC Comment DIFF FINAL DIFF FINAL Differential Comment Activated Partial 24.5 SEC Thromboplast Time Sodium Level 137 MEQ/L 139 MEQ/L Potassium Level 3.5 MEQ/L 3.4 MEQ/L Chloride Level 103 MEQ/L 107 MEQ/L Carbon Dioxide Level 22.9 MEQ/L 20.9 MEQ/L Anion Gap 11 MEQ/L 11 MEQ/L Blood Urea Nitrogen 8 MG/DL 8 MG/DL Creatinine 0.68 MG/DL 0.61 MG/DL Estimat Glomerular Filtration 88 ML/MIN 100 ML/MIN Rate Random Glucose 143 MG/DL 103 MG/DL Calcium Level 8.7 MG/DL 8.4 MG/DL Total Bilirubin 0.4 MG/DL Aspartate Amino Transf 15 U/L (AST/SGOT) Alanine Aminotransferase 17 U/L (ALT/SGPT) Alkaline Phosphatase 75 U/L Total Protein 7.4 GM/DL Albumin 3.6 GM/DL Lipase 218 U/L Physical Examination HEENT: normocephalic; atraumatic; no jaundice. Throat is clear. NECK: Neck is supple, no JVD, no lymphadenopathy. CHEST: Chest is clear to auscultation and percussion. CARDIAC: Regular rate and rhythm with no murmur gallop or rubs. ABDOMEN: Soft, nondistended, epigastric tenderness; no hepatosplenomegaly; bowel sounds are present in all four quadrants. EXTREMITIES: No clubbing, cyanosis, or edema. SKIN: Normal; no rash; no jaundice. 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 (Liam Yoon) Assessment and Plan Plan - Intractable nausea/vomiting X 2 days- unable to keep any thing down, epigastric pain, wt loss of 20 ibs in 6 months, CT with not acute findings, labs unremarkable except for slight leukocytosis This could PUD, gastritis, EGD today, ppi, Reglan - S/P colonoscopy/hemorrhoidectomy with Dr. De La Torre on (05/13/16) - Leukocytosis- most likely reactive, afebrile - Wt loss of 20 ibs in 6months - GERD- intermittent, mild - Bipolar disorder per attending Plan: - NPO - EGD today - Cont. PPI, Reglan - Supportive care - Patient seen and examined by Dr. Rascon and myself and this note is written on her behalf. (Liam Yoon) Physician Comments seen, examined agree with above (Padma Rascon MD) MaryamLiam wiseman [facility] May 22, 2016 09:38 Padma Rascon MD May 22, 2016 15:16
[2016-05-22 11:15] VITALS: BP 106/55; PULSE 69; RESP 19; TEMP 98.4; O2SAT 94
[2016-05-22 12:30] VITALS: BP 121/63; PULSE 67; RESP 16; TEMP 98.5; O2SAT 93
[2016-05-22] MEDS ORDERED: PROPOFOL 200 MG/20 ML AMP IV ONE (12:55)
[2016-05-22 15:41] VITALS: BP 115/60; PULSE 64; RESP 18; TEMP 99.7; O2SAT 95
[2016-05-22] MEDS: METOCLOPRAMIDE HCL 10 MG/2 ML VIAL IV PUSH SCH ×2 (16:13→22:00)
--- NOTE | 2016-05-22 17:18 | EKG ---
Date Performed: 05/21/2016 Time Performed: 11:14:03 PTAGE: 60 years EKG: Sinus rhythm WITH MARKED SINUS ARRHYTHMIA POSSIBLE LEFT ATRIAL ENLARGEMENT NONSPECIFIC T-WAVE ABNORMALITY BORDERL INE ECG PREVIOUS TRACING : 05/06/2016 08.23 Periods of sinus pause are new since prior tracing. Clinica l correlation strongly recommended. DOCTOR: Valdemar Barone Interpretating Date/Time 05/22/2016 17:11:07
[2016-05-22 19:45] VITALS: BP 125/65; PULSE 68; RESP 19; TEMP 98.3; O2SAT 93
[2016-05-22] MEDS: traZODone HCL 100 MG TAB PO SCH (21:00)
--- NOTE | 2016-05-22 22:49 | MB ---
cc: RAGHAVENDRA CARTER M.D. DATE OF CONSULTATION 05/22/2016 REASON FOR CONSULTATION Emesis and pain, question of gallbladder abnormalities. HISTORY OF PRESENT ILLNESS The patient is a 60-year-old female who was in the hospital a week ago for hemorrhoidectomy and had severe nausea and vomiting and is admitted for this reason. She had a 20 pound weight loss over the last couple of months and is concerned about this. PAST MEDICAL HISTORY 1. GE reflux disease, 2. Bipolar disorder 3. History of hemorrhoidectomy one week ago. ALLERGIES The patient has no known allergies. MEDICATIONS 1. Trazodone 200 mg p.o. q.h.s. 2. Prozac 20 mg daily 3. Trileptal 450 mg daily. SOCIAL HISTORY The patient denies any alcohol use. He has a chronic tobacco user but quit two years ago. No illicit drug use. REVIEW OF SYSTEMS 12-point review of systems has been done and the patient's positives noted for generalized weakness, nausea, vomiting and previous abdominal pain which has resolved. PHYSICAL EXAMINATION GENERAL: A female in no acute distress. VITAL SIGNS: BP 115/60, pulse 64, respirations 18, temperature 99.7, 95% saturation on room air. HEENT: Sclerae anicteric. Pupils reactive. CHEST: Clear to auscultation. CARDIAC: Regular rate and rhythm. ABDOMEN: Soft and nontender on today's exam. There are no hernias noted. There is no distension. EXTREMITIES: Pulses are intact. NEUROLOGIC: Exam is nonfocal. LABORATORY DATA WBCs 11.5 down from 13.0 yesterday. Hemoglobin is 12.9. Chemistries - potassium is slightly decreased at 3.4. BUN and creatinine are normal at 8 and 0.6. Liver function tests are all normal from yesterday. Lipase is normal as well. IMAGING STUDIES CT of the abdomen and pelvis yesterday demonstrates no acute abnormality in the stomach, small bowel or colon. There is no bladder thickening and no hernia. There is no acute abnormality noted on CT scan. ASSESSMENT Abdominal pain and vomiting with a question of the gallbladder abnormality as the patient had bile on EGD performed today. I would be reluctant to perform any surgical procedure based on this finding alone. HIDA scan has been ordered and await results of this. If this is essentially normal, no further intervention would be required. I do not feel that her symptoms warrant cholecystectomy at this time. but we will check HIDA scan results. MD CAT Yao/ /10:10 PM /10:38 PM SIMI
[2016-05-23 01:36] VITALS: BP 126/63; PULSE 65; RESP 19; TEMP 98.2; O2SAT 94
[2016-05-23] MEDS: SODIUM CHLOR 0.9% 1000 ML INJ 1,000 ML IV SCH ×2 (04:00→14:00)
[2016-05-23 04:20] VITALS: BP 120/60; PULSE 65; RESP 19; TEMP 98.1; O2SAT 93
[2016-05-23 04:23] LABS: MEAN CELL VOLUME 93.8 FL (80.0-100.0); MEAN CORPUSCULAR HGB CONC 34.1 % (32.0-36.0); PLATELET COUNT 280 TH/MM3 (150-450); RED BLOOD COUNT 3.73 MIL/MM3 (4.00-5.30); RED CELL DISTRIBUTION WIDTH 13.4 % (11.6-17.2); REVIEW FLAG FINAL
[2016-05-23 04:28] LABS: BICARBONATE 24.6 MEQ/L (21.0-32.0); MAGNESIUM 2.1 MG/DL (1.5-2.5); POTASSIUM 3.6 MEQ/L (3.5-5.1)
[2016-05-23 04:30] LABS: WHITE BLOOD COUNT 9.8 TH/MM3 (4.0-11.0)
[2016-05-23] MEDS: METOCLOPRAMIDE HCL 10 MG/2 ML VIAL IV PUSH SCH ×2 (06:00→14:20)
--- NOTE | 2016-05-23 09:31 | HHI.PR ---
Subjective Subjective Remarks S/P EGD 05/22 gastritis, bile noted during procedure nausea improved remains NPO for HIDA scan no fever no cp no sob minimal epigastric discomfort Review of Systems Constitutional Constitutional Remarks 12 point ROS completed negative except as noted above Vitals/Results Intake & Output 05/22/16 05/22/16 05/23/16 15:00 23:00 07:00 Intake Total 200 ml Balance 200 ml IV Total 200 ml # Voids 2 Vital Signs Vital Signs Date Time Temp Pulse Resp B/P Pulse Ox O2 Delivery O2 Flow Rate FiO2 05/23/16 04:20 98.1 65 19 120/60 93 05/23/16 01:36 98.2 65 19 126/63 94 05/22/16 19:45 98.3 68 19 125/65 93 05/22/16 15:41 99.7 64 18 115/60 95 05/22/16 13:13 67 16 121/63 93 05/22/16 13:08 69 16 113/60 93 05/22/16 13:03 98.5 69 16 113/60 93 05/22/16 12:30 98.5 67 16 121/63 93 05/22/16 11:15 98.4 69 19 106/55 94 CBC/BMP: 05/23/16 0342 05/23/16 0342 Lab Results Laboratory Tests Test 05/23/16 03:42 White Blood Count 9.8 TH/MM3 Red Blood Count 3.73 MIL/MM3 Hemoglobin 11.9 GM/DL Hematocrit 35.0 % Mean Corpuscular Volume 93.8 FL Mean Corpuscular Hemoglobin 32.0 PG Mean Corpuscular Hemoglobin 34.1 % Concent Red Cell Distribution Width 13.4 % Platelet Count 280 TH/MM3 Mean Platelet Volume 8.5 FL Sodium Level 139 MEQ/L Potassium Level 3.6 MEQ/L Chloride Level 106 MEQ/L Carbon Dioxide Level 24.6 MEQ/L Anion Gap 8 MEQ/L Blood Urea Nitrogen 6 MG/DL Creatinine 0.66 MG/DL Estimat Glomerular Filtration 91 ML/MIN Rate Random Glucose 88 MG/DL Calcium Level 8.2 MG/DL Magnesium Level 2.1 MG/DL Physical Exam General General Appearance: Well Developed, No Acute Distress, Comfortable Eyes Eye Exam: Pupils Equal, Pupils Reactive Ears & Nose Ears & Nose Exam: Nasal Mucosa Lumpkin Throat Throat Exam: Oral Mucosa [place] & Moist Neck Neck Exam: Neck Supple, Trachea Midline Pulmonary Resp Exam: Clear Bilaterally Cardiology CV Exam: Regular, Normal Sinus Rhythm, Good Perfusion Gastrointestinal/Abdomen GI Exam: Soft, Bowel Sounds Present, Non-Distended GI Remarks epigastric tenderness Musculoskeletal MS Exam: Joints Intact Integumentary Skin Exam: Warm, Dry Extremeties Extremities Exam: No Edema, Pedal Pulses Palpable Neurologic Neuro Exam: Alert, Awake, Oriented, Speech Clear, Moving All Extremities, No Focal Deficits Psychiatric Psych Exam: Appropriate Responses VTE Prophylaxis VTE Prophylaxis Device: SCDs PUD Prophylasis PUD Prophylaxis: Protonix Assessment/Plan Problem List: (1) Acute gastritis (2) Intractable nausea and vomiting (3) Status post hemorrhoidectomy (4) Unintentional weight loss (5) GERD (gastroesophageal reflux disease) (6) Bipolar disorder Assessment/Plan continue IVF Antiemetics PRN Replace electrolytes IV PPI Endorses wt loss x 6 months unintentional appreciate GI input S/P EGD 05/22 gastritis, bile noted during procedure put on Reglan, surgical consult, HIDA HIDA scan pending Surgery consulted, no intervention recommended, will wait for HIDA Keep NPO except meds for now Continue some home meds Replace electrolytes Pain management Labs reviewed-stable will f/u HIDA results change to inpatient, NPO, requiring IV antiemetics, needs further diagnostic work up D/W RN D/W Dr. Myrick D/W pt This patient was seen by myself and Dr. Myrick, this note is written on his behalf. Problem Qualifiers (1) Acute gastritis: Qualified Code: K29.00 - Acute gastritis without hemorrhage, unspecified gastritis type (2) Intractable nausea and vomiting: Qualified Code: R11.2 - Intractable vomiting with nausea, unspecified vomiting type (3) GERD (gastroesophageal reflux disease): Qualified Code: K21.9 - Gastroesophageal reflux disease, esophagitis presence not specified (4) Bipolar disorder: Qualified Code: F31.9 - Bipolar affective disorder, remission status unspecified Sisi Cruz May 23, 2016 09:31
[2016-05-23] MEDS ORDERED: SINCALIDE 5 MCG/5 ML VIAL IV ONE (09:47)
--- NOTE | 2016-05-23 10:32 | RADRPT ---
EXAM DATE/TIME: 05/23/2016 08:24 [place] COMPARISON: No previous studies available for comparison. INDICATIONS : Nausea and vomiting with abdominal pain for one day. DOSE: 4.2 mCi Tc99m Mebrofenin IV MEDICATION: 1.0 mcg Cholecystokinin IV; No symptomatic response. Cholecystokinin was administered by slow infusion over 8 minutes beginning at 65 minutes. MEDICAL HISTORY : Gastroesophageal reflux disease. SURGICAL HISTORY : Hemorrhoidectomy. ENCOUNTER: Initial ACUITY: 1 day PAIN SCALE: 5/10 LOCATION: Right upper quadrant TECHNIQUE: Following the intravenous administration of radiotracer, dynamic sequential image were performed with continuous acquisition. Time-activity curves were generated. FINDINGS: HEPATIIC KINETICS: There is prompt uptake of radiotracer in the liver. No focal defects are seen. There is normal rate of washout from the hepatic parenchyma. BILIARY CLEARANCE: Activity is first seen in the extrahepatic biliary system at 17 minutes. There is normal excretion i nto the small bowel. GALLBLADDER: Activity is first seen in the gallbladder at 15 minutes. POST CHOLECYSTOKININ: No significant contraction demonstrated after Kinevac. BILIARY ENTERIC REFLUX: None observed. CLINICAL: The patient was asymptomatic after Cholecystokinin administration. CONCLUSION: No perceptible contraction of the gallbladder in response to Kinevac. Patient was asymptomatic. The r est of the study is normal. No evidence of acute cholecystitis or biliary obstruction. Hubert Garcia MD on May 23, 2016 at 10:29 Board Certified Radiologist. This report was verified electronically.
[2016-05-23] MEDS: FLUoxetine HCL 20 MG CAP PO SCH (11:28)
[2016-05-23] MEDS: SODIUM CHLORIDE 0.9% FLUSH 5 ML FLUSH FLUSH SCH (11:28)
[2016-05-23] MEDS: OXcarbazepine 150 MG TAB PO SCH (11:28)
[2016-05-23] MEDS: PANTOPRAZOLE SODIUM 40 MG VIAL IV PUSH SCH (11:29)
[2016-05-23 12:19] VITALS: BP 111/57; PULSE 60; RESP 18; TEMP 98.8; O2SAT 93
--- NOTE | 2016-05-23 13:51 | HHI.PR ---
Subjective Subjective Notes Sleeping comfortably. Objective Vitals/I&O Vital Signs Date Time Temp Pulse Resp B/P Pulse Ox O2 Delivery O2 Flow Rate FiO2 05/23/16 12:19 98.8 60 18 111/57 93 05/21/16 19:27 Room Air Labs Laboratory Tests Test 05/23/16 03:42 White Blood Count 9.8 Red Blood Count 3.73 Hemoglobin 11.9 Hematocrit 35.0 Mean Corpuscular Volume 93.8 Mean Corpuscular Hemoglobin 32.0 Mean Corpuscular Hemoglobin 34.1 Concent Red Cell Distribution Width 13.4 Platelet Count 280 Mean Platelet Volume 8.5 Sodium Level 139 Potassium Level 3.6 Chloride Level 106 Carbon Dioxide Level 24.6 Anion Gap 8 Blood Urea Nitrogen 6 Creatinine 0.66 Estimat Glomerular Filtration 91 Rate Random Glucose 88 Calcium Level 8.2 Magnesium Level 2.1 Abdomen: Non-tender A/P Assessment and Plan Nausea/emesis. HIDA shows no emptying but cystic duct is open and no sxs with CCK. Plan: No surgery indicated. Ok to advance diet Will sign off. Fidel Andrade MD May 23, 2016 13:51
--- NOTE | 2016-05-23 14:52 | HHI.DCPOC ---
Discharge Care Plan Diagnosis: (1) Intractable nausea and vomiting Your Health Problems Are: Appetite Changes Goals to Promote Your Health * To prevent worsening of your condition and complications * To maintain your health at the optimal level Directions to Meet Your Goals Take your medications as prescribed Follow your dietary instruction Follow activity as directed Keep your appointments as scheduled Take your immunizations and boosters as scheduled If your symptoms worsen call your PCP, if no PCP go to Urgent Care Center or Emergency Room Smoking is Dangerous to Your Health. Avoid second hand smoke Call the 24-hour hour crisis hotline for domestic abuse at Sisi Cruz May 23, 2016 14:52
[2016-05-23] MEDS ORDERED: METO5TAB PO (14:57)
--- NOTE | 2016-05-23 15:24 | HHI.GIFU ---
GI Follow-up Note Consult Follow-up Subjective: Patient laying in bed comfortably, no new complaints except , feeling better. She is being discharged today.EDNA noted, discussed with -no surgery for now .Denies nausea, vomiting. Objective: PHYSICAL EXAMINATION: Vitals signs stable No fever Vital Signs Date Time Temp Pulse Resp B/P Pulse Ox O2 Delivery O2 Flow Rate FiO2 05/23/16 12:19 98.8 60 18 111/57 93 HEENT: Pupils round and reactive to light; normocephalic; atraumatic; no jaundice. Throat is clear. NECK: Neck is supple, no JVD, no lymphadenopathy. CHEST: Chest is clear to auscultation and percussion. CARDIAC: Regular rate and rhythm with no murmur gallop or rubs. ABDOMEN: Soft, nondistended, nontender; no hepatosplenomegaly; bowel sounds are present in all four quadrants. EXTREMITIES: No clubbing, cyanosis, or edema. SKIN: Normal; no rash; no jaundice. 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 Available Data (labs, X- Rays, Procedues) : Laboratory Tests Test 05/22/16 05/23/16 06:24 03:42 White Blood Count 11.5 TH/MM3 9.8 TH/MM3 Red Blood Count 4.07 MIL/MM3 3.73 MIL/MM3 Hemoglobin 12.9 GM/DL 11.9 GM/DL Hematocrit 38.8 % 35.0 % Mean Corpuscular Volume 95.2 FL 93.8 FL Mean Corpuscular Hemoglobin 31.6 PG 32.0 PG Mean Corpuscular Hemoglobin 33.2 % 34.1 % Concent Red Cell Distribution Width 13.9 % 13.4 % Platelet Count 341 TH/MM3 280 TH/MM3 Mean Platelet Volume 8.0 FL 8.5 FL Neutrophils (%) (Auto) 83.1 % Lymphocytes (%) (Auto) 10.5 % Monocytes (%) (Auto) 5.9 % Eosinophils (%) (Auto) 0.1 % Basophils (%) (Auto) 0.4 % Neutrophils # (Auto) 9.6 TH/MM3 Lymphocytes # (Auto) 1.2 TH/MM3 Monocytes # (Auto) 0.7 TH/MM3 Eosinophils # (Auto) 0.0 TH/MM3 Basophils # (Auto) 0.0 TH/MM3 CBC Comment DIFF FINAL Differential Comment Sodium Level 139 MEQ/L 139 MEQ/L Potassium Level 3.4 MEQ/L 3.6 MEQ/L Chloride Level 107 MEQ/L 106 MEQ/L Carbon Dioxide Level 20.9 MEQ/L 24.6 MEQ/L Anion Gap 11 MEQ/L 8 MEQ/L Blood Urea Nitrogen 8 MG/DL 6 MG/DL Creatinine 0.61 MG/DL 0.66 MG/DL Estimat Glomerular Filtration 100 ML/MIN 91 ML/MIN Rate Random Glucose 103 MG/DL 88 MG/DL Calcium Level 8.4 MG/DL 8.2 MG/DL Magnesium Level 2.1 MG/DL ASSESSMENT/PLAN: nausea, vomiting-egd showed large amount of bile in stomach suggesting possible gastric dysmotility, hiatal hernia biliary dyskinesia-no surgery recommended for now Recommendation Reglan prn ppi Carafate fu office 4-6 weeks fu biopsy gastric emptying op ok to dc home from gi point It was a pleasure seeing Karma Gayle. Thank you for this consult. Entered by: Padma Taylor MD May 23, 2016 15:24
--- NOTE | 2016-05-23 15:26 | HHI.DS ---
Discharge Summary Admission Date May 23, 2016 at 09:25 Discharge Date: May 23, 2016 Admitting Diagnosis intractable vomiting, acute gastritis (1) Acute gastritis (2) Unintentional weight loss (3) Intractable nausea and vomiting (4) Bipolar disorder (5) GERD (gastroesophageal reflux disease) (6) Status post hemorrhoidectomy Procedures S/P EGD 05/22 gastritis, bile noted during procedure CBC/BMP: 05/23/16 0342 05/23/16 0342 Significant Findings Laboratory Tests Test 05/21/16 05/22/16 05/23/16 10:00 06:24 03:42 White Blood Count 13.0 TH/MM3 11.5 TH/MM3 (4.0-11.0) (4.0-11.0) Neutrophils (%) (Auto) 89.1 % 83.1 % (16.0-70.0) (16.0-70.0) Lymphocytes (%) (Auto) 5.7 % (9.0-44.0) Neutrophils # (Auto) 11.6 TH/MM3 9.6 TH/MM3 (1.8-7.7) (1.8-7.7) Lymphocytes # (Auto) 0.7 TH/MM3 (1.0-4.8) Estimat Glomerular Filtration 88 ML/MIN (>89) Rate Random Glucose 143 MG/DL (74-106) Potassium Level 3.4 MEQ/L (3.5-5.1) Carbon Dioxide Level 20.9 MEQ/L (21.0-32.0) Calcium Level 8.4 MG/DL 8.2 MG/DL (8.5-10.1) (8.5-10.1) Red Blood Count 3.73 MIL/MM3 (4.00-5.30) Blood Urea Nitrogen 6 MG/DL (7-18) Imaging Last Impressions Hepatobiliary Scan Nuclear Medicine 05/23/16 0000 Signed Impressions: Service Date/Time: Monday, May 23, 2016 08:24 - CONCLUSION: No perceptible contraction of the gallbladder in response to Kinevac. Patient was asymptomatic. The rest of the study is normal. No evidence of acute cholecystitis or biliary obstruction. Hubert Garcia MD Abdomen/Pelvis CT 05/21/16 0952 Signed Impressions: Service Date/Time: Thursday, May 21, 2016 10:19 - CONCLUSION: 1. No acute abnormality. 2. 2 tiny nonobstructing left renal stones. 3. 1.9 cm left adrenal gland nodule poorly characterized on this unenhanced study. Maxx Mayers Jr., MD Hospital Course This is a pleasant 60-year-old white female who was in the hospital approximately a week ago for hemorrhoidectomy. The patient had no acute issues postop and was sent home to recuperate. The patient was also sent home with pain medicine, Percocet. The prescription said two tablets every 4 hours as needed for pain and the patient was taking them as prescribed. She states sometimes she would wait a little longer but for the most part she was taking two Percocet at a time. The patient has had nausea pretty much constant since she got home but approximately 2 days ago she was not able to eat or keep anything on her stomach. She has had intractable vomiting, she states "a hundred times". She states that she vomited approximately 1 hour ago which was liquid consistency. She is not bringing up very much but she is dry heaving to the point that she is sore in her chest and abdomen. The patient stated that she does have a history of reflux and gastroesophageal reflux disease but denied any chest pain and no shortness of breath. The patient denies any fever or chills over the past week. She did have a bowel movement which was a soft consistency. She denied any bleeding. No headache and no history of any nausea and vomiting or abdominal pain like she has had this go around. She was evaluated in the emergency room, laboratory workup was completed. WBC count 13, RBC 4.24, hemoglobin 13.6, hematocrit 39.9, platelet count 363, neutrophil absolute 89.1, lymphocyte 5.7. APTT 24.5. Chemistry sodium 137, potassium 3.5, chloride 103, carbon dioxide 22.9, amnion gap 11, BUN 8, creatinine 0.68, GFR 88, random glucose 143, calcium 8.7, lipase 218. All other chemistries are normal. IMAGING STUDIES Abdomen, pelvis CT showed no acute abnormality, tiny nonobstructing left renal stone, 1.9 cm left adrenal gland nodule poorly characterized in his unenhanced study. Patient was admitted for: (1) Acute gastritis (2) Intractable nausea and vomiting (3) Status post hemorrhoidectomy (4) Unintentional weight loss (5) GERD (gastroesophageal reflux disease) (6) Bipolar disorder During the course of the hospitalization, the following to place: Patient was put on IV fluids, clear liquid diet Antiemetics were ordered when necessary electrolytes were replaced She was put on IV PPI continue on IVF Antiemetics PRN ordered Patient had little improvement with above treatment, therefore gastroenterology was consulted Patient also endorsed 20 lb wt loss x 6 months unintentional GI recommended upper endoscopy S/P EGD 05/22 gastritis, bile noted during procedure Patient was started on Reglan Because of bile noted during procedure, surgical consult was requested per GI Surgery was consulted, no intervention was recommended HIDA scan was completed Results were normal Surgery signed off Patient tolerated clear liquid diet, no more vomiting Gastroenterology okay for discharge, recommended outpatient follow-up for gastric emptying study Possible cause of nausea vomiting may be gastroparesis Patient was cleared for discharge Instructed to follow up with gastroenterology in 7-10 days Continue with diet as tolerated Prescription given Pt Condition on Discharge: Stable Discharge Disposition: Discharge Home Discharge Instructions DIET: Follow Instructions for: Heart Healthy Diet Activities you can perform: Weight Bearing as Al Follow up Referrals: Gastroenterology - 10 Days with Padma Rascon MD PCP Follow-up New Medications: Metoclopramide (Metoclopramide) 5 Mg Tab 5 MG PO TIDAC PRN 30 #30 Ref 0 TAB Continued Medications: Fluoxetine (Prozac) 20 Mg Cap 60 MG PO DAILY #30 Ref 0 CAP Oxcarbazepine (Trileptal) 150 Mg Tab 450 MG PO DAILY Seizure Control #30 Ref 0 TAB Trazodone (Trazodone) 100 Mg Tab 200 MG PO HS Control Depression #30 Ref 0 TAB Sisi Cruz May 23, 2016 15:26
--- NOTE | 2016-05-23 16:31 | EKG ---
Date Performed: 05/22/2016 Time Performed: 11:46:33 PTAGE: 60 years EKG: Sinus rhythm competing with accelerated junctional rhythm Compared to prior tracing no significant change ABNORMA L RHYTHM ECG PREVIOUS TRACING : 05/21/2016 11.14 DOCTOR: Tony Quiles Interpretating Date/Time 05/23/2016 16:30:42
== END 2016-05-23 15:59 | disposition home or self-care (01) | DRG 392 ==
LOC: NEPC 09:22 → NEDA 11:43 → NEPFCDU 20:06 → OBSVTOIN 05-23 09:25
PROVIDERS: ADMIT Specialist; ATTEND Specialist
PROC: 0DB68ZX Excision of Stomach, Via Natural or Artificial Opening Endoscopic, Diagnostic (ICD-10-PCS; 2016-05-22)
PROC: 0DB58ZX Excision of Esophagus, Via Natural or Artificial Opening Endoscopic, Diagnostic (ICD-10-PCS; 2016-05-22)
PROC: 0DB98ZX Excision of Duodenum, Via Natural or Artificial Opening Endoscopic, Diagnostic (ICD-10-PCS; principal; 2016-05-22 12:39)
DX: K29.00 Acute gastritis without bleeding (principal); N20.0 Calculus of kidney; F31.9 Bipolar disorder, unspecified; Z72.0 Tobacco use; K64.9 Unspecified hemorrhoids; K21.9 Gastro-esophageal reflux disease without esophagitis; E27.9 Disorder of adrenal gland, unspecified; K57.30 Diverticulosis of large intestine without perforation or abscess without bleeding; K64.4 Residual hemorrhoidal skin tags; K64.2 Third degree hemorrhoids; R63.4 Abnormal weight loss; K44.9 Diaphragmatic hernia without obstruction or gangrene
CPT/HCPCS: 74176; 78227; 80048; 80053; 83690; 83735; 85025; 85027; 85730; 88305; 93005; 96374; 96375; A9537; C9113; G0378; J2060; J2270; J2405; J2765; J2805; J3480; J7030